=== PATIENT | male | born 1985 | race Caucasian/White ===

== ENCOUNTER → 2021-08-31 02:43 | Outpatient (CLI) | payer OTHER, SELFPAY ==
--- NOTE | 2021-08-31 | DI.US_ITS ---
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 Estimated ejection fraction is 60 to 65%. Wall motion is normal Normal right ventricular size and systolic function Both atria are normal in size There are no structural or hemodynamically significant valvular abnormalities Normal estimated right ventricular systolic pressure 30 mmHg Wall motion Left Ventricle The left ventricle is normal size. The left ventricular systolic function is normal. The left ventric ular ejection fraction is within the normal range. There is normal left ventricular wall thickness. T here is normal LV segmental wall motion. There is no ventricular septal defect visualized. LVEF is 60 -65%. Right Ventricle The right ventricle is normal size. The right ventricular systolic function is normal. The RVSP is 30 .9mmHg. Atria The left atrium size is normal. The right atrium size is normal. The interatrial septum is intact wit h no evidence for an atrial septal defect. Aortic Valve The aortic valve is normal in structure. Aortic valve is trileaflet. There is no aortic valvular sten osis. No aortic regurgitation is present. Mitral Valve The mitral valve is normal in structure. No evidence of mitral valve stenosis. Trace mitral regurgita tion. Tricuspid Valve The tricuspid valve is normal in structure. There is no tricuspid valve stenosis. Trace to mild tricu spid regurgitation. Pulmonic Valve The pulmonary valve is normal in structure. There is no pulmonic valvular stenosis. Trace to mild pul catarino regurgitation. Great Vessels The aortic root is normal in size. The ascending aorta is normal in size. Aortic arch is normal in ca liber. IVC is normal in size and collapses >50% with inspiration. Pericardium There is no pericardial effusion. 2D Dimensions IVSD d PLAX 0.92 cm M: 0.6-1.2 LV Vol A2C d MOD 95.9 mL LVPW d PLAX 0.94 cm M: 0.6 - 1.2 LV Vol A4C d MOD 114.4 mL LVID d PLAX 5.02 cm M: 4.2 - 5.8 LA vol/ BSA A2C s A-L 20.9 mL/m2 LVDs 3.35 cm M: 2.5 - 4.0 LA vol/ BSA A4C s A-L 22.1 mL/m2 Ao Root d 3.05 cm M: 3.1 - 3.7 LA Vol/ BSA Biplane s A-L 22.2 mL/m2 RA Area A4C 14.96 cm2 LA Area A4C s MOD 17.15 cm2 RA Vol/ BSA A4C s A-L 19.7 mL/m2 LA Area A2C s MOD 16.11 cm2 Ao Asc Diam d 2.98 cm M: 2.6 - 3.4 LV EF A4C MOD 60.9 % LV EF Teichholz 60.4 % LV EF A2C MOD 58.8 % LVEF (Gaytan's) 57.96 % M: 52 - 72 LV EF Biplane MOD 58.0 % LV Volume 77.45 mL M: 62 - 150 SV 60.49 mL LV Volume Index 37.59 mL/m2 M: 34 - 74 SV Index 29.29 mL/m2 LV Vol Biplane MOD 104.4 mL FS 32.35 % M-Mode TAPSE 2.64 cm (M/F) >1.7 LV Diastology MV E' medial 0.111 (>0.07 m/s) E/A Ratio 1.4 LV E/e MED 7.85 (<14) MV E Vmax 0.88 (0.4-1.3 m/s) MV E' lateral 0.171 (>0.1 m/s) MV A Vmax 0.65 (0.4-1.3 m/s) LV E/e LAT 5.10 (<14) MV E/A Ratio 1.27 MV E/E' medial 7.90 MV E/E' lateral 5.13 Aortic Valve LVOT Area 4.02 cm2 AoV Area Vmax 3.42 cm2 LVOT Vmax 1.26 m/s AoV Area/ BSA (Vmax) 1.66 cm2/m2 LVOT Mean Freedom. 0.79 m/s OCTAVIO Mean Freedom. 3.08 cm2 LVOT Peak Grad 6.4 mmHg OCTAVIO Mean Freedom. Index 1.49 cm2/m2 LVOT Mean Grad 3.0 mmHg LVOT VTI 0.242 m LVOT Diam s 2.25 cm AoV Vmax 1.48 m/s Velocity Ratio 0.85 AoV Mean Freedom. 1.02 m/s AoV Peak Grad 8.8 mmHg LVOT SV 97.03 mL AoV Mean Grad 4.7 mmHg AoV VTI 0.252 m AoV Area VTI 3.86 cm2 AoV Area/ BSA (VTI) 1.87 cm/m2 Mitral Valve MV DT 185 (160-240 msec) MV PHT 54 msec MV Area PHT 4.10 cm2 MV VTI 0.273 m MV Area VTI 3.55 (4.0-6.0 cm2) Pulmonary Valve PV Vmax 1.00 (0.5-1.5 m/s) RVOT Peak Gr. 2.23 mmHg PV Peak Grad 4.0 mmHg RVOT Mean Gr. 1.20 mmHg PV Mean Grad 2.0 mmHg RVOT VTI 0.146 m PV VTI 0.186 m RVOT Vmax 0.75 m/s Tricuspid Valve TR Peak Grad 27.8 mmHg TR Vmax 2.64 m/s RA Pressure 3.00 mmHg RVSP (TR) 30.9 mmHg
--- NOTE | 2021-08-31 11:30 | DI.CT_ITS ---
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 TECHNIQUE: Imaging Protocol: Axial CT angiography was performed with multi-slice acquisition and mu lti-planar and/or 3D reconstructions. CONTRAST MATERIAL: Intravenous: Omnipaque 350 Contrast volume:100 ml COMPARISON: No exams were available for comparison FINDINGS: Pulmonary Arteries: No evidence of filling defect to suggest pulmonary emboli. Tracheobronchial tree: Patent where visualized. Mediastinum and Jenifer: No dominant adenopathy or fluid collection. Pulmonary parenchyma: No consolidation or dominant measurable mass. No architectural distortion. Pleura: No effusion or pneumothorax. Heart: The heart is not dilated. No coronary artery calcifications are seen. No pericardial effusio n. Aorta: Thoracic aorta non-dilated. Upper abdomen: 2 low-density lesions in the right lobe of the liver not well characterized on this e xam. Low-density lesion in the inferior left lobe appears to represent a cyst. There liver appears enlarged and shows mild diffuse fatty infiltration. Bones: Schmorl's nodes superior endplates of T8, T10 and T11. IMPRESSION: No evidence of pulmonary embolism or other acute abnormality.. Low-density liver lesions do not appear to represent simple cysts. Multi phase liver CT is recommend ed for further evaluation. RADIATION DOSE DELIVERED: 476.77mGy.cm Total DLP DATA REPOSITORY: All CT scans at this facility are submitted to the National Radiology Data Registry (NRDR) Dose Index Registry (DIR) with the [employer] ([employer]). RADIATION OPTIMIZATION: All CT scans at this facility use at least one of these dose optimization te chniques: automated exposure control; mA and/or kV adjustment per patient size (includes targeted exa ms where dose is matched to clinical indication); or iterative reconstruction.
[2021-08-31] MEDS: Omnipaque 350 MG/ML 100 ML BTL IJ (11:37)
[2021-08-31] MEDS: Normal Saline Flush 10 ML SYR IVP (11:38)
[2021-08-31] MEDS: Normal Saline - Diluent 50 ML VIAL IV (11:38)
== END ==
PROVIDERS: PCP Family Medicine; Visit Provider General Practice
DX: I51.4 Myocarditis, unspecified (principal); T88.1XXA Other complications following immunization, not elsewhere classified, initial encounter; I26.99 Other pulmonary embolism without acute cor pulmonale; R93.2 Abnormal findings on diagnostic imaging of liver and biliary tract
CPT/HCPCS: 71275; 93306; J3490

== ENCOUNTER 2021-08-31 03:44 | Outpatient (CLI) | payer OTHER, SELFPAY ==
[2021-08-31 12:18] LABS: Troponin I < 0.05 ng/mL (<0.06)
[2021-08-31 12:42] LABS: D-Dimer 399 ng/mlFEU (<500)
== END 2021-08-31 03:45 | disposition home or self-care (01) ==
LOC: LBO 03:44
PROVIDERS: PCP Family Medicine; Visit Provider General Practice
DX: I51.4 Myocarditis, unspecified (principal)
CPT/HCPCS: 36415; 84484; 85379

== ENCOUNTER 2021-10-05 00:49 | Outpatient (CLI) | payer OTHER, SELFPAY ==
--- NOTE | 2021-10-05 11:00 | RT.EKG_ITS ---
APPROVED REPORT Exam: Resting ECG Reason for Exam: COPD Patient Location: O HR:65 bpm ECG Measurements Heart Rate 65 AXIS PA 151 P 43 QRSd 94 QRS 41 QT 381 T 13 QTc 396 Conclusion Sinus rhythm...normal P axis, V-rate 60- 99 ST elev, probable normal early repol pattern...ST elevation, age<55 Normal Electrocardiogram
== END 2021-10-05 00:50 | disposition home or self-care (01) ==
LOC: RT 00:49
PROVIDERS: PCP Family Medicine; Visit Provider General Practice
DX: J44.9 Chronic obstructive pulmonary disease, unspecified (principal); I21.3 ST elevation (STEMI) myocardial infarction of unspecified site
CPT/HCPCS: 93005; 93010